=== PATIENT | male | born 1935 | race Hispanic/Latino ===

== ENCOUNTER 2018-07-06 09:05 | Outpatient (CLI) | payer MEDICARE | END 2018-07-06 09:06 | disposition home or self-care (01) | LOC: PAT 09:05 ==

== ENCOUNTER 2018-07-19 06:02 | Day surgery (SDC) | payer MEDICARE ==
[2018-07-06 10:32] VITALS: BMI 26.1
[2018-07-19 08:24] VITALS: RESP 18
[2018-07-19] MEDS ORDERED: Bupivacaine 0.5% 50 ML IJ ONE (08:38)
[2018-07-19] MEDS ORDERED: Propofol 10 mg/ml Inj (20 ML) ONE (08:39)
[2018-07-19] MEDS ORDERED: Succinylcholine 200 mg/10 ml Inj IV ONE (08:39)
[2018-07-19] MEDS ORDERED: Midazolam 2 MG/2 ML VIAL ONE (08:39)
[2018-07-19] MEDS ORDERED: Rocuronium 10 mg/ml (5 ml) ONE (08:39)
[2018-07-19] MEDS ORDERED: Glycopyrrolate 0.2 mg/ml (2ml vial) ONE ×2 (08:40→10:36)
[2018-07-19] MEDS ORDERED: Lidocaine 1% Inj (20ml) ONE (08:45)
[2018-07-19] MEDS ORDERED: Bupivacaine 0.5% Inj(30mL) IJ ONE (09:11)
[2018-07-19] MEDS ORDERED: Sevoflurane - Inhalation Anesthetic Liq (250 ml) ONE (10:20)
[2018-07-19] MEDS ORDERED: Neostigmine Methylsulfate 3mg/3ml Syringe IV ONE (10:36)
--- NOTE | 2018-07-19 11:24 | PCM.SURG1 ---
Surgeon's Initial Post Op Note - Surgeon's Notes Surgeon: MD Nayeli Vice President Of Software Engineering: Navid PGY3 Pre-Operative Diagnosis: Bilateral Inguinal hernias Operative Findings: Bilateral Inguinal hernias Post-Operative Diagnosis: Bilateral Inguinal hernias Operation Performed: Laparoscopic repair of bilateral inguinal hernia Specimen/Specimens Removed: none Estimated Blood Loss: EBL {In ML}: 10 Date of Surgery/Procedure: 07/19/18 Time of Surgery/Procedure: 09:15
[2018-07-19] MEDS ORDERED: HYDROmorphone 0.5 mg/0.5 ml ISec IVP ONE ×4 (11:25→12:40)
[2018-07-19] MEDS ORDERED: HYDROmorphone 0.5 mg/0.5 ml ISec ONE ×4 (11:29→12:43)
[2018-07-19] MEDS ORDERED: HYDROmorphone 0.5 mg/0.5 ml ISec IVP PRN (11:30)
[2018-07-19] MEDS ORDERED: Lactated Ringer's 1,000 ML IV SCH (11:30)
[2018-07-19 13:35] VITALS: TEMP 97.5
[2018-07-19 14:11] VITALS: O2SAT 95
[2018-07-19 16:21] VITALS: BP 145/70; PULSE 70
--- NOTE | 2018-07-20 03:01 | OP ---
PROCEDURE DATE: 07/19/2018 PREOPERATIVE DIAGNOSIS: Bilateral inguinal hernias. POSTOPERATIVE DIAGNOSIS: Bilateral inguinal hernias. PROCEDURE: Laparoscopic repair of bilateral inguinal hernias with mesh. SURGEON: Venkat Tyler MD BOILERMAKER FITTER: Chris Shoemaker DO, PGY-3 ANESTHESIOLOGIST: Anastacio West MD TYPE OF ANESTHESIA: General. ESTIMATED BLOOD LOSS: 10 mL. DESCRIPTION OF PATIENT: This is an 82-year-old male, who presents to the hospital the same day of surgery for laparoscopic repair of bilateral inguinal hernias. Both inguinal hernias are reducible and contain no bowel. The patient is able to tolerate diet at home, and patient is able to have bowel function at home. Bilateral inguinal hernias sometimes cause pain. The patient is here for repair. DESCRIPTION OF PROCEDURE: Upon sedation and intubation, the patient's bilateral groin region and abdomen were prepped and draped in the usual sterile fashion. Timeout was called indicating right patient, correct laterality of procedure, correct diagnosis of procedure, and correct procedure performed. Local anesthesia was inserted supraumbilically along the planned incision. Horizontal supraumbilical incision was made to put a 12-mm trocar. The incision was made using an 11-blade. Larisa clamp was used to dissect bluntly to the level of the fascia. Veress needle was then used at this point through the same incision to enter the abdomen. Upon entry of Veress needle, the abdomen was insufflated with entering pressures of 4 and abdomen was insufflated to a pressures of 15 mmHg. Upon insufflating the abdomen, a 12-mm trocar was placed in that same incision supraumbilically. Camera was used to examine the intraabdominal cavity through the newly placed trocar. It was seen that there were bilateral inguinal hernias without intestinal contents. Two more trocars were placed lateral to the supraumbilical trocar, one on the left and one on the right side. Both trocars were 5 mm. Before placing both, local anesthesia was also used. The patient was now placed in a Trendelenburg position in order to allow for adequate exposure of the bilateral inguinal hernias. The left side was first repaired. The ASIS was palpated and the peritoneum was dissected with electrocautery starting from the lateral aspect slowly superior to the ASIS and working all way medially. Upon scoring the peritoneum medially, we were able to create a plane in the preperitoneal space, which we dissected down up to the level of the inguinal hernias. We dissected down using blunt dissection such as peanut and also electrocautery. Upon dissecting out to the level of the inguinal hernia on the left side, we were able to reduce the sac into the intraabdominal space. Now with an exposed hernia defect, we were able to place our mesh right along the hernia defect. The medial part of the mesh overlaid with pubis tubercle and also the pubis symphysis. The mesh that was used is a medium sized 3D mesh in the [employer]. Tack was used to secure the mesh to the pubis symphysis and also to the pubic tubercle medially to the hernia defect. The peritoneum which we created a plane for was then used to cover the mesh to minimize its contact with the intraabdominal content. The tack used for the mesh and to secure the peritoneum back together was the OptiFix 5 mm tacks. Upon repairing the left inguinal hernia, care was then taken to the right inguinal hernia. Same thing was done on the other side with scoring of the peritoneum mildly superior to the ASIS in the right side and working all way medially and dissecting a plane inferiorly up until to the level of the inguinal hernias. Now we got to the level of the inguinal hernias, we were able to reduce the sac here also. Once the sac was reduced, we placed the same medium-sized 3D mesh to cover the hernia defect and also overlie the pubic tubercle and pubic symphysis. The same tacking stapler was used to secure the mesh to the pubic symphysis and the pubic tubercle. The peritoneum which we created a plane was used to cover the mesh and was stapled back together using the same OptiFix stapler. At this point, both bilateral inguinal hernias were now repaired. The patient was placed back on normal level and intraabdominal contents slowed down and secured the peritoneum against the mesh and minimizing contact with the intraabdominal contents. All laparoscopic instruments were removed from patient. The abdomen was deflated by allowing gas to exit out of the trocars, and then all three trocars were now removed. The supraumbilical incision at the level of the fascia was repaired using a Vicryl stitch in a [id number] manner at the level of the fascia. All three incisions at skin level were closed with 4-0 Monocryl. Dressing used was Dermabond. At the end of the case, all the tools and equipments used for the operation were counted, and the count was correct. The patient was then awakened from anesthesia and extubated in good condition. The patient tolerated the procedure well and was taken to postanesthesia care unit. Estimated blood loss was 10 mL. Chris Sohemaker DO Venkat Tyler MD
== END 2018-07-19 17:25 | disposition home or self-care (01) ==
LOC: SDS 06:02
PROVIDERS: ATTEND General Practice
DX: K40.20 Bilateral inguinal hernia, without obstruction or gangrene, not specified as recurrent (principal)
CPT/HCPCS: 49650; J0330; J0690; J1170; J2250; J2405; J2704; J2710; J3010; J7120